=== PATIENT | male | born 1995 | race Caucasian/White ===

== ENCOUNTER 2018-04-29 02:04 | Emergency (ER) | payer SELFPAY | END 2018-04-29 03:14 | disposition home or self-care (01) | LOC: C.ER 02:04 ==

== ENCOUNTER 2018-06-09 14:34 | Emergency (ER) | payer MEDICAID ==
[2018-06-09 14:55] VITALS: BMI 26.6
[2018-06-09 14:57] VITALS: BP 137/88; PULSE 67; RESP 18; TEMP 98.2; O2SAT 100
--- NOTE | 2018-06-09 16:14 | RAD ---
Date of service: 06/09/2018 PROCEDURE: Left Wrist Radiographs. HISTORY: Pain COMPARISON: None. TECHNIQUE: 4 views obtained. FINDINGS: BONES: Bone alignment and mineralization are normal. There is no acute displaced fracture or bone destruction. JOINTS: Normal. No dislocation. SOFT TISSUES: Normal. OTHER FINDINGS: None. IMPRESSION: Normal examination.
--- NOTE | 2018-06-09 16:31 | C.PDOC ---
History Of Present Illness 23 y/o male comes in to ED complaining of left wrist pain x1 week. Patient states the pain worsens with movement of wrist and feels like it would lock in place. He rates the pain 7/10. Denies taking any medications for the pain. Patient also complains of generalized headache after crying or getting emotional. He is concerned he may be suffering from depression due to visitation rights. Patient has not yet been diagnosed. Chief Complaint (Nursing): Headache History Per: Patient History/Exam Limitations: no limitations Onset/Duration Of Symptoms: Days Current Symptoms Are (Timing): Still Present Quality: "Pain" Exacerbating Factor(s): Movement Past Medical History Reviewed: Historical Data, Nursing Documentation, Vital Signs Vital Signs: Last Vital Signs Temp 98.2 F 06/09/18 14:53 Pulse 67 06/09/18 14:53 Resp 18 06/09/18 14:53 BP 137/88 06/09/18 14:53 Pulse Ox 100 06/09/18 14:53 - Medical History PMH: Denies: Diabetes, Hepatitis, HIV, HTN, Seizures, Sexually Transmitted Disease Family History: States: No Known Family Hx - Social History Hx Alcohol Use: No Hx Substance Use: Yes (PCP) - Immunization History Hx Tetanus Toxoid Vaccination: No Hx Influenza Vaccination: No Hx Pneumococcal Vaccination: No Review Of Systems Constitutional: Negative for: Fever, Chills Gastrointestinal: Negative for: Nausea, Vomiting, Abdominal Pain Musculoskeletal: Positive for: Other (Left Wrist Pain) Neurological: Negative for: Weakness, Numbness Physical Exam - Physical Exam Appears: Non-toxic, No Acute Distress Skin: Warm, Dry Head: Atraumatic Eye(s): bilateral: Normal Inspection Oral Mucosa: Moist Neck: Supple Extremity: Normal ROM (of left wrist), No Deformity, No Swelling, Other (crepitus of left wrist) Extremity: Bilateral: Normal Color And Temperature Neurological/Psych: Oriented x3, Normal Speech, Normal Motor, Normal Sensation ED Course And Treatment O2 Sat by Pulse Oximetry: 100 (RA) Pulse Ox Interpretation: Normal - Other Rad Left wrist XR X-Ray: Read By Radiologist Interpretation: FINDINGS: BONES: Bone alignment and mineralization are normal. There is no acute displaced fracture or bone destruction. JOINTS: Normal. No dislocation. SOFT TISSUES: Normal. OTHER FINDINGS: None. IMPRESSION: Normal examination. Medical Decision Making Medical Decision Making: Plan: --Ibuprofen 600 mg PO Headache likely due to emotions/crying Patient referred to [facility] for counseling for assessment/counseling for possible Depression --Left Wrist XR - negative Reassessment: Patient eloped prior to receiving results and discharge paperwork. Nurse states that patient may have left because he was hungry but has yet to return Discharge paperwork completed if he returns in the future Disposition - Disposition Referrals: [facility] [Outside] [facility] at [Outside] Disposition: ELOPEMENT - ER ONLY Disposition Time: 16:20 Condition: UNKNOWN Additional Instructions: CONNOR RIDDLE, thank you for letting us take care of you today. The emergency medical care you received today was directed at your acute symptoms. If you were prescribed any medication, please fill it and take as directed. It may take several days for your symptoms to resolve. Return to the Emergency Department if your symptoms worsen, do not improve, or if you have any other problems. Please contact your doctor or call one of the physicians/clinics you have been referred to that are listed on the Patient Visit Information form that is included in your discharge packet. Bring any paperwork you were given at discharge with you along with any medications you are taking to your follow up visit. Our treatment cannot replace ongoing medical care by a primary care provider outside of the emergency department. Thank you for allowing the [facility] team to be part of your care today. If you had an X-Ray or CT scan: A Radiologist will review the ED reading if any change in treatment is needed we will contact you. Prescriptions: Ibuprofen [Motrin] 600 mg PO Q8 PRN #30 tab PRN Reason: Pain, Moderate (4-7) Instructions: Headache, Adult (DC), Common Wrist Injuries Forms: [employer] (Polish) - Clinical Impression Clinical Impression: Wrist pain, Headache - PA / PREPARATION SUPERVISOR / Resident Statement MD/DO has reviewed & agrees with the documentation as recorded. - Scribe Statement The provider has reviewed the documentation as recorded by the Lamaribe Yenny Suresh All medical record entries made by the Scribe were at my direction and personally dictated by me. I have reviewed the chart and agree that the record accurately reflects my personal performance of the history, physical exam, medical decision making, and the department course for this patient. I have also personally directed, reviewed, and agree with the discharge instructions and disposition.
== END 2018-06-09 16:20 | disposition left against medical advice (07) ==
LOC: C.ER 14:34
DX: M25.532 Pain in left wrist (principal); R51 Headache

== ENCOUNTER 2018-06-13 20:57 | Emergency (ER) | payer MEDICAID ==
[2018-06-13 20:57] VITALS: BMI 26.6
[2018-06-13 22:24] VITALS: BP 122/74; PULSE 69; RESP 20; TEMP 99.3; O2SAT 98
--- NOTE | 2018-06-13 22:29 | C.PDOC ---
History Of Present Illness 23 year old male accidentally stepped into a small hole in the street today and twisted his right ankle. Patient is currently complaining of pain and swelling to the lateral right ankle. He reports Hx of injury to the same ankle. Denies weakness or numbness. Time Seen by Provider: 06/13/18 21:12 Chief Complaint (Nursing): Lower Extremity Problem/Injury History Per: Patient History/Exam Limitations: no limitations Onset/Duration Of Symptoms: Hrs Current Symptoms Are (Timing): Still Present Recent travel outside of the [place]: No - Ankle/Foot Description Of Injury: Twisted Past Medical History Reviewed: Historical Data, Nursing Documentation, Vital Signs Vital Signs: Last Vital Signs Temp 99.3 F 06/13/18 22:24 Pulse 69 06/13/18 22:24 Resp 20 06/13/18 22:24 BP 122/74 06/13/18 22:24 Pulse Ox 98 06/13/18 22:24 - Medical History PMH: Denies: Diabetes, Hepatitis, HIV, HTN, Seizures, Sexually Transmitted Disease Family History: States: Unknown Family Hx - Social History Hx Alcohol Use: No Hx Substance Use: Yes (PCP) - Immunization History Hx Tetanus Toxoid Vaccination: No Hx Influenza Vaccination: No Hx Pneumococcal Vaccination: No Review Of Systems Musculoskeletal: Positive for: Other (Right ankle pain and swelling) Neurological: Negative for: Weakness, Numbness Physical Exam - Physical Exam Appears: Non-toxic Skin: Normal Color, Warm Head: Atraumatic, Normacephalic Eye(s): bilateral: Normal Inspection Extremity: No Normal ROM (causes pain to right ankle), No Calf Tenderness, Capillary Refill (<2 seconds), No Deformity, Other (Slight swelling to right lateral malleolus with tenderness) Pulses: Left Dorsalis Pedis: Normal, Right Dorsalis Pedis: Normal Neurological/Psych: Oriented x3, Normal Speech, Normal Motor, Normal Sensation Gait: Other (Antalgic) ED Course And Treatment O2 Sat by Pulse Oximetry: 98 (Room air) Pulse Ox Interpretation: Normal - Other Rad Right ankle x-ray X-Ray: Interpreted by Me, Viewed By Me Interpretation: Moderate soft tissue swelling. No acute fracture or dislocation. Progress Note: Right ankle x-ray ordered, results were negative for fracture, patient placed in air cast, given crutches with instructions for nonweight bearing, and advised to follow up with ortho. Disposition Counseled Patient/Family Regarding: Diagnosis, Need For Followup, Rx Given - Disposition Referrals: Angel Luis Leonard III, MD [Staff Provider] - Disposition: HOME/ ROUTINE Disposition Time: 22:25 Condition: STABLE Additional Instructions: PLEASE FOLLOW UP WITH PODIATRY LEG ELEVATION APPLY ICE TO AREA USE KARI BANDAGE FOR SUPPORT/ CRUTCHES FOR NON WEIGHT BEAR ' RETURN TO ER IF WORSE Instructions: Ankle Sprain (DC) Forms: [employer] (Korean) - Clinical Impression Clinical Impression: Right ankle sprain - PA / REGISTRATION COORDINATOR / Resident Statement MD/DO has reviewed & agrees with the documentation as recorded. - Scribe Statement The provider has reviewed the documentation as recorded by the Scribe Gama Dias All medical record entries made by the Khushboo were at my direction and personally dictated by me. I have reviewed the chart and agree that the record accurately reflects my personal performance of the history, physical exam, medical decision making, and the department course for this patient. I have also personally directed, reviewed, and agree with the discharge instructions and disposition.
--- NOTE | 2018-06-14 09:54 | RAD ---
Right ankle three views History: Pain. Twisting injury. Comparison: None available. Findings: Prominent soft tissue swelling overlying the lateral malleolus. No evidence of acute displaced fracture or dislocation. Impression: Prominent soft tissue swelling overlying the lateral malleolus. If pain persists, consider MRI.
== END 2018-06-13 22:47 | disposition home or self-care (01) ==
LOC: C.ER 20:57
DX: S93.401A Sprain of unspecified ligament of right ankle, initial encounter (principal); X50.9XXA Other and unspecified overexertion or strenuous movements or postures, initial encounter; Y92.410 Unspecified street and highway as the place of occurrence of the external cause